=== PATIENT | male | born 1975 | race Asian ===

== ENCOUNTER 2024-09-23 16:01 | Emergency (ER) | payer MEDICAID ==
[~2024-09-23] VITALS: Ht 170.2 cm; Wt 68.0 kg
[2024-09-23 16:05] VITALS: O2SAT 97
[2024-09-23] MEDS: SODIUM CHLORIDE 0.9% 1,000 ML IV ONE (16:47)
[2024-09-23] MEDS: ONDANSETRON HCL 4MG/2ML INJ IV STA (16:47)
[2024-09-23] MEDS: MORPHINE SULFATE 4 MG/ML INJ (FOR IV/IM USE) IV STA (16:47)
[2024-09-23 16:48] VITALS: BP 182/119; PULSE 93; RESP 18; TEMP 37.1; O2SAT 97
[2024-09-23 17:16] LABS: BASOPHILS % 0.5 % (0.0-2.0); EOSINOPHILS % 1.1 % (0.0-5.0); HEMATOCRIT. 48.7 % (42.0-52.0); HEMOGLOBIN. 16.4 g/dL (14.0-18.0); LYMPHOCYTES % 21.7 % (20.0-50.0); MEAN CORPUSCULAR HEMOGLOBIN 30.7 pg (28.0-32.0); MEAN CORPUSCULAR HGB CONC 33.8 g/dL (31.0-37.0); MEAN CORPUSCULAR VOLUME 90.8 fL (80.0-94.0); MEAN PLATELET VOLUME 7.2 fl (7.4-10.4); NEUTROPHILS % 71.7 % (40.0-76.0); PLATELET 318 x1000/uL (130-400); RED BLOOD CELL COUNT 5.36 mill/uL (4.7-6.1); RED CELL DISTRIBUTION WIDTH 13.2 % (11.6-14.6); WHITE BLOOD COUNT 11.4 x1000/uL (4.5-11.0)
[2024-09-23 17:22] LABS: CHLORIDE 105 mEq/L (98-107); SODIUM 140 mEq/L (136-145)
[2024-09-23 17:23] LABS: CALCIUM 9.5 mg/dL (8.7-10.4); CARBON DIOXIDE 26 mEq/L (21-32)
[2024-09-23 17:28] LABS: CREATININE 0.8 mg/dL (0.6-1.3); GLUCOSE 96 mg/dL (70-105); TROPONIN I HIGH SENSITIVITY 7 ng/L (3.0-53); UREA NITROGEN BLOOD 17 mg/dL (9-23)
[2024-09-23 17:34] LABS: PROTHROMBIN TIME 10.9 sec (9.6-11.0)
[2024-09-23] MEDS ORDERED: KETOROLAC 15MG/ML VIAL IV ONE (17:45)
== END 2024-09-23 17:56 | disposition left against medical advice (07) ==
LOC: ER 16:01
DX: R51.9 Headache, unspecified (principal); E11.9 Type 2 diabetes mellitus without complications; I10 Essential (primary) hypertension
CPT/HCPCS: 99285; 96374; 70450; 96361; 96375; 80048; 85025; 85610; 84484; 36415; 93005; J2405; J2270; J7030